=== PATIENT | male | born 1975 | race Caucasian/White ===

== ENCOUNTER 2025-04-11 08:51 | Outpatient (CLI) | payer OTHER, SELFPAY | END 2025-04-11 08:52 | disposition home or self-care (01) | PROVIDERS: PCP Internal Medicine; Visit Provider Internal Medicine | DX: Z13.9 Encounter for screening, unspecified (principal) | CPT/HCPCS: 80053; 80061; G0103 ==

== ENCOUNTER 2025-05-06 11:27 | Outpatient (CLI) | payer OTHER, SELFPAY ==
--- NOTE | 2025-05-06 12:35 | P.ANES_ITS ---
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
--- NOTE | 2025-05-06 12:35 | W.ANESCHARGE ---
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
== END 2025-05-06 11:28 | disposition home or self-care (01) ==
LOC: OP CLINIC 11:29
PROVIDERS: PCP Internal Medicine; Visit Provider Internal Medicine
DX: Z12.11 Encounter for screening for malignant neoplasm of colon (principal); D12.5 Benign neoplasm of sigmoid colon
CPT/HCPCS: 00811; 00812; 45380; J2704